=== PATIENT | female | born 1995 | race Caucasian/White ===

== ENCOUNTER 2021-09-01 15:03 | Emergency (ER) | payer MEDICARE, MEDICAID ==
[~2021-09-01] VITALS: Ht 165.1 cm; Wt 110.9 kg
[2021-09-01 15:56] VITALS: TEMP 98.4
[2021-09-01 17:01] LABS: BASO # 0.1 K/mm3 (0.0-0.2); BASO % 0.7 % (0.0-2.0); EOS # 0.1 K/mm3 (0.0-0.7); EOS % 1.5 % (0.0-4.0); GRAN # 4.8 K/mm3 (1.4-6.5); GRAN % 57.7 % (42.2-75.2); HEMATOCRIT 42.6 % (37.0-47.0); HEMOGLOBIN 14.2 g/dl (12.5-16.0); LYMPH # 2.5 K/mm3 (1.2-3.4); LYMPH % 30.2 % (20.0-51.0); MEAN CELL VOLUME 90 fl (80.0-100.0); MEAN CORPUSCULAR HEMOGLOBIN 30 pg (27-31); MEAN CORPUSCULAR HGB CONC 33 g/dl (33.0-37.0); MEAN PLATELET VOLUME 9.2 fl (7.4-10.4); MONO # 0.8 K/mm3 (0.1-0.6); MONO % 9.7 % (1.7-9.3); PLATELET COUNT 255 K/mm3 (130-400); RED BLOOD COUNT 4.73 M/mm3 (4.10-5.30); REDCELL DISTRIBUTION WIDTH-CV 12.6 % (11.5-14.5)
[2021-09-01 17:16] LABS: ALANINE AMINOTRANSFERASE 13 U/L (0-55); ALBUMIN 4.2 gm/dL (3.5-5.0); ALKALINE PHOSPHATASE 79 U/L (40-150); ANION GAP 11 mmol/L (7-16); AST,SGOT 18 U/L (5-34); BILIRUBIN,TOTAL 0.9 mg/dL (0.2-1.2); BLOOD UREA NITROGEN 10 mg/dL (7-19); CALCIUM 9.2 mg/dL (8.4-10.2); CARBON DIOXIDE 22 mmol/L (22-29); CHLORIDE 109 mmol/L (98-107); GLUCOSE 94 mg/dL (70-99); POTASSIUM 3.5 mmol/L (3.5-4.5); SODIUM 142 mmol/L (136-145); TOTAL PROTEIN 7.3 gm/dL (6.2-8.1)
[2021-09-01 17:36] LABS: TROPONIN-I < 0.010 ng/mL (0.00-0.033); TSH w REFLEX 1.965 uIU/mL (0.350-4.940)
[2021-09-01 18:45] VITALS: BP 144/72; PULSE 64
== END 2021-09-01 18:46 | disposition home or self-care (01) ==
LOC: COL.ER 15:03
PROVIDERS: Emergency Medicine
DX: R20.2 Paresthesia of skin (principal); R79.1 Abnormal coagulation profile

== ENCOUNTER → 2021-09-04 | Outpatient (CLI) | payer MEDICARE, MEDICAID | LOC: COL.VAS 08:11 | DX: R20.2 Paresthesia of skin (principal) ==

== ENCOUNTER 2021-10-28 19:10 | Emergency (ER) | payer MEDICARE, MEDICAID ==
[~2021-10-28] VITALS: Ht 165.1 cm; Wt 113.6 kg
[2021-10-28 19:42] VITALS: TEMP 98.7
[2021-10-28 20:44] LABS: BASO # 0.1 K/mm3 (0.0-0.2); BASO % 0.7 % (0.0-2.0); EOS # 0.1 K/mm3 (0.0-0.7); EOS % 1.2 % (0.0-4.0); GRAN # 5.1 K/mm3 (1.4-6.5); GRAN % 53.8 % (42.2-75.2); HEMATOCRIT 42.5 % (37.0-47.0); HEMOGLOBIN 13.6 g/dl (12.5-16.0); LYMPH # 3.4 K/mm3 (1.2-3.4); LYMPH % 35.9 % (20.0-51.0); MEAN CELL VOLUME 92 fl (80.0-100.0); MEAN CORPUSCULAR HEMOGLOBIN 30 pg (27-31); MEAN CORPUSCULAR HGB CONC 32 g/dl (33.0-37.0); MEAN PLATELET VOLUME 8.9 fl (7.4-10.4); MONO # 0.8 K/mm3 (0.1-0.6); MONO % 8.2 % (1.7-9.3); PLATELET COUNT 265 K/mm3 (130-400); RED BLOOD COUNT 4.61 M/mm3 (4.10-5.30); REDCELL DISTRIBUTION WIDTH-CV 12.2 % (11.5-14.5)
[2021-10-28 20:59] LABS: ALBUMIN 3.6 gm/dL (3.5-5.0); BILIRUBIN,TOTAL 0.5 mg/dL (0.2-1.2); CALCIUM 8.9 mg/dL (8.4-10.2); CREATININE, serum 0.76 mg/dL (0.57-1.11); POTASSIUM 3.9 mmol/L (3.5-4.5)
[2021-10-28] MEDS ORDERED: PRILOSEC 20MG20 MG PO (21:21)
[2021-10-28 21:24] LABS: COLLECTION METHOD CLEAN CATCH
[2021-10-28 21:35] LABS: MUCOUS Present (NOT PRESENT); PH 5 (5-8); SQUAMOUS EPITHELIAL 0-2 /hpf (0-10); URINE APPEARANCE Hazy (CLEAR/HAZY); URINE BACTERIA None Seen /hpf (NONE SEEN); URINE BILIRUBIN Negative (NEGATIVE); URINE BLOOD Negative (NEGATIVE); URINE COLOR Yellow (YELLOW); URINE GLUCOSE Negative (NEGATIVE); URINE KETONE Negative (NEGATIVE); URINE LEUKOCYTE ESTERASE Negative (NEGATIVE); URINE NITRATE Negative (NEGATIVE); URINE PROTEIN(semi-quant) Negative (NEGATIVE); URINE RBC 0-2 /hpf (0-2); URINE UROBILINOGEN Negative (NEGATIVE)
[2021-10-28 21:43] VITALS: BP 116/74; PULSE 66
== END 2021-10-28 21:43 | disposition home or self-care (01) ==
LOC: COL.ER 19:10
PROVIDERS: Emergency Medicine
DX: K92.2 Gastrointestinal hemorrhage, unspecified (principal)
CPT/HCPCS: C9113; J7030